=== PATIENT | female | born 1950 | race Caucasian/White ===

== ENCOUNTER 2022-12-30 08:48 | Emergency (ER) | payer MEDICARE, BC, OTHER ==
[~2022-12-30] VITALS: Ht 162.6 cm; Wt 62.3 kg
[2022-12-30 08:50] VITALS: TEMP 97.4
[2022-12-30 11:55] LABS: BASO % 0.7 % (0.0-1.0); EOS # 0.1 10^3/uL (0.0-0.5); HEMATOCRIT 42.4 % (36.0-47.0); HEMOGLOBIN 13.5 g/dl (12.0-15.5); LYMPH # 1.2 10^3/uL (1.5-5.0); LYMPH % 21.4 % (24.0-44.0); MEAN CORPUSCULAR HEMOGLOBIN 28.8 pg (27.0-33.0); MEAN CORPUSCULAR HGB CONC 31.8 g/dl (32.0-36.5); MEAN CORPUSCULAR VOLUME 90.6 fl (80.0-96.0); MONO # 0.4 10^3/uL (0.0-0.8); MONO % 6.6 % (2.0-8.0); NEUTROPHILS % 69.8 % (36.0-66.0); PLATELET COUNT, AUTOMATED 246 10^3/uL (150-450); RED BLOOD COUNT 4.68 10^6/uL (4.00-5.40); WHITE BLOOD COUNT 5.7 10^3/uL (4.0-10.0)
[2022-12-30 12:18] LABS: ALBUMIN 4.1 G/DL (3.2-5.2); BILIRUBIN,DIRECT 0.2 MG/DL (<0.4); BILIRUBIN,TOTAL 0.7 MG/DL (0.3-1.2); TOTAL PROTEIN 6.9 G/DL (5.7-8.2)
[2022-12-30] MEDS ORDERED: NS 1,000 ML IV ONE (12:30)
[2022-12-30] MEDS ORDERED: ISOVUE-370 76% 100ML VIAL As Ordered ONE (12:33)
[2022-12-30] MEDS ORDERED: SIME1CAP3 PO (14:37)
[2022-12-30 14:54] VITALS: BP 149/70; O2SAT 98
== END 2022-12-30 14:57 | disposition home or self-care (01) ==
LOC: M ED 08:48
DX: R14.0 Abdominal distension (gaseous) (principal); M51.37 Other intervertebral disc degeneration, lumbosacral region; F41.9 Anxiety disorder, unspecified; Z79.899 Other long term (current) drug therapy
CPT/HCPCS: 74177; 80047; 80076; 81000; 81015; 83690; 85025; 96360; 99284; Q9967